=== PATIENT | female | born 1955 | race Hispanic/Latino ===

== ENCOUNTER 2017-07-14 10:53 | Outpatient (CLI) | payer MEDICARE ==
[2017-07-14 12:05] LABS: Blood Urea Nitrogen 16 mg/dL (7-17)
[2017-07-14] MEDS ORDERED: NACL ONE (13:04)
--- NOTE | 2017-07-14 14:47 | Cat Scan Report ---
CT ABDOMEN AND PELVIS WITHOUT AND WITH CONTRAST INDICATION: Abdomen and pelvic swelling, mass, lump. COMPARISON: None similar. FINDINGS: Abdomen and pelvis CT performed following oral contrast and intravenous administration of 100 cc of Omnipaque 300. Precontrast images also obtained. LUNG BASES: Mild bibasilar atelectasis or scarring. Slight coronary calcifications. Nonspecific distal esophageal wall prominence/thickening, not excluded for gastroesophageal reflux and/or hiatal hernia, amongst others. ABDOMEN: Precontrast images demonstrate no radiopaque gallstones or renal calculi. Postcontrast images demonstrate left hepatic lobe tip extending into the left upper quadrant. Right hepatic lobe approximately 19.3 cm in midclavicular length. Approximately 1.2 cm nonspecific splenic hypodensity, axial image 34, series 4, possibly a hemangioma. Otherwise unremarkable liver, spleen, gallbladder, pancreas, adrenals, nonaneurysmal abdominal aorta with mild atherosclerotic calcifications, IVC and non-hydronephrotic kidneys. No ascites or size significant adenopathy. Opacified GI tract nonobstructive. Somewhat low-lying cecum in the right hemipelvis. Moderate colonic stool/constipation admixed with contrast. Small fat-containing umbilical hernia with a transverse neck of 0.9 cm. PELVIS: Uterus surgically absent. Few small pelvic phleboliths. Urinary bladder and the rectosigmoid within normal limits. No free fluid or significant adenopathy. Approximately 1.3 cm L3 vertebral body hemangioma on the right. No focal aggressive osseous lesions. CONCLUSION: Various incidental findings, including possible constipation, somewhat prominent liver and hysterectomy, amongst others, as above. Please correlate. Thank you for the opportunity to participate in this patient's care.
== END 2017-07-14 10:54 | disposition home or self-care (01) ==
LOC: CT 10:53
PROVIDERS: ATTEND Internal Medicine
DX: K42.9 Umbilical hernia without obstruction or gangrene (principal); I25.10 Atherosclerotic heart disease of native coronary artery without angina pectoris; I70.0 Atherosclerosis of aorta; I87.8 Other specified disorders of veins; D18.09 Hemangioma of other sites; J44.9 Chronic obstructive pulmonary disease, unspecified; D64.9 Anemia, unspecified; J18.9 Pneumonia, unspecified organism; F17.200 Nicotine dependence, unspecified, uncomplicated; Z90.710 Acquired absence of both cervix and uterus
CPT/HCPCS: 36415; 74178; 82565; 84520; Q9967

== ENCOUNTER 2017-10-18 17:04 | Emergency (ER) | payer MEDICARE ==
[2017-10-18 17:13] VITALS: BP 169/83
== END 2017-10-18 22:00 | disposition left against medical advice (07) ==
LOC: ED 17:04
DX: R03.0 Elevated blood-pressure reading, without diagnosis of hypertension (principal); Z53.21 Procedure and treatment not carried out due to patient leaving prior to being seen by health care provider

== ENCOUNTER 2018-01-26 15:52 | Emergency (ER) | payer MEDICARE ==
[2018-01-26] MEDS ORDERED: ULTRAM PO ONE (18:09)
[2018-01-26] MEDS ORDERED: MOTRIN PO ONE (18:09)
--- NOTE | 2018-01-26 19:30 | XRay Report ---
FINAL REPORT PROCEDURE: XR PELVIS COMPLETE 3+V TECHNIQUE: Pelvis radiographs, 3 views, AP and right oblique projections. CPT 99174 HISTORY: Foreign body right buttock. COMPARISON: No prior studies are available for comparison. FINDINGS: Fracture(s): None . Joint spaces: Mild narrowing of the bilateral hip joints. Mild narrowing of the symphysis. Soft tissues: Small pelvic phleboliths. Foreign bodies: Linear 5 mm density overlies the right iliac wing, not clearly seen on lateral view and not seen in the subcutaneous soft tissues on oblique view. Bone mineralization: Normal . IMPRESSION: Linear 5 mm density overlies the right iliac wing. This is not clearly seen on lateral view or in the subcutaneous tissues on oblique view. Consider could be debris in bowel. Cannot exclude small linear radiopaque foreign body. Consider further evaluation/clinical correlation if there is continued clinical concern for small radiopaque foreign body. Mild degenerative change.
--- NOTE | 2018-01-26 19:52 | Emergency Department Report ---
ED General Adult HPI - General Chief complaint: Skin/Abscess/Foreign Body Stated complaint: NEEDLE IN RIGHT HIP Time Seen by Provider: 01/26/18 16:39 Source: patient Mode of arrival: Ambulatory Limitations: No Limitations - History of Present Illness Initial comments: Patient is a 62-year-old female who is presenting with a possible foreign body in the right buttock. Patient states her gives her B12 shots. Patient states that she feels of a piece of the needle broke off in the skin. Patient had a shot placed in the right buttock. Patient having this minor discomfort in that area approximately a 3 out of 10 in severity patient denies any fevers chills nausea vomiting diarrhea at this time. Severity scale (0 -10): 5 - Related Data Home Medications Medication Instructions Recorded Confirmed Last Taken busPIRone [Buspar] 5 mg PO TID 12/30/14 05/04/17 Unknown Cyclobenzaprine [Flexeril 10 MG 25 mg PO TID PRN 02/26/16 05/04/17 Unknown TAB] Phenytoin [Dilantin] 300 mg PO QHS 05/05/17 05/05/17 05/03/17 Previous Rx's Medication Instructions Recorded Last Taken Type Promethazine [Phenergan TAB] 25 mg PO Q6H PRN #20 tablet 05/13/15 Unknown Rx ALPRAZolam [Xanax TAB] 1 mg PO Q8H PRN #90 tablet 10/07/15 Unknown Rx Citalopram Hydrobromide [celeXA] 40 mg PO QDAY #30 tablet 10/07/15 Unknown Rx Dicyclomine [Bentyl] 10 mg PO TID #90 capsule 10/07/15 Unknown Rx HYDROcodone/APAP 10-325 [[place] 1 tab PO Q6H PRN #90 tablet 10/07/15 Unknown Rx 10-325 mg TAB] OLANzapine [ZyPREXA] 15 mg PO QHS #30 tablet 10/07/15 Unknown Rx Omeprazole [PriLOSEC] 20 mg PO QDAY #30 capsule. 10/07/15 Unknown Rx Benzonatate [Tessalon Perles] 100 mg PO Q8HR #10 capsule 05/06/17 Unknown Rx Famotidine [Pepcid] 20 mg PO BID #30 tablet 05/06/17 Unknown Rx Levofloxacin [Levaquin TAB] 750 mg PO Q24HR #4 tablet 05/06/17 Unknown Rx Doxycycline [Vibramycin CAP] 100 mg PO Q12HR #14 capsule 01/26/18 Unknown Rx Ibuprofen [Motrin] 800 mg PO Q8HR PRN #20 tablet 01/26/18 Unknown Rx traMADol [Ultram] 50 mg PO Q6HR PRN #12 tablet 01/26/18 Unknown Rx Allergies Allergy/AdvReac Type Severity Reaction Status Date / Time No Known Allergies Allergy Verified 01/26/18 16:09 ED Review of Systems ROS: Stated complaint: NEEDLE IN RIGHT HIP Other details as noted in HPI Comment: All other systems reviewed and negative ED Past Medical Hx - Past Medical History Hx Hypertension: No Hx Heart Attack/AMI: No Hx Congestive Heart Failure: No Hx Diabetes: No Hx Deep Vein Thrombosis: No Hx Pulmonary Embolism: No Hx GERD: No Hx Liver Disease: No Hx Renal Disease: No Hx Sickle Cell Disease: No Hx Arthritis: No Hx Headaches / Migraines: Yes Hx Seizures: Yes Hx Kidney Stones: No Hx Asthma: No Hx COPD: Yes Hx Tuberculosis: No Hx Dementia: No Hx HIV: No Additional medical history: MVP - Surgical History Hx Coronary Stent: No Hx Open Heart Surgery: No Hx Pacemaker: No Hx Internal Defibrillator: No Hx Cholecystectomy: No Hx Appendectomy: No Hx Breast Surgery: No Additional Surgical History: Hysterectomy(1985), ganglion cyst removed Left wrist - Social History Smoking Status: Current Every Day Smoker Substance Use Type: None - Medications Home Medications: Home Medications Medication Instructions Recorded Confirmed Last Taken Type busPIRone [Buspar] 5 mg PO TID 12/30/14 05/04/17 Unknown History Promethazine [Phenergan TAB] 25 mg PO Q6H PRN #20 tablet 05/13/15 05/04/17 Unknown Rx ALPRAZolam [Xanax TAB] 1 mg PO Q8H PRN #90 tablet 10/07/15 05/04/17 Unknown Rx Citalopram Hydrobromide [celeXA] 40 mg PO QDAY #30 tablet 10/07/15 05/04/17 Unknown Rx Dicyclomine [Bentyl] 10 mg PO TID #90 capsule 10/07/15 05/04/17 Unknown Rx HYDROcodone/APAP 10-325 [[place] 1 tab PO Q6H PRN #90 tablet 10/07/15 05/04/17 Unknown Rx 10-325 mg TAB] OLANzapine [ZyPREXA] 15 mg PO QHS #30 tablet 10/07/15 05/04/17 Unknown Rx Omeprazole [PriLOSEC] 20 mg PO QDAY #30 capsule. 10/07/15 05/04/17 Unknown Rx Cyclobenzaprine [Flexeril 10 MG 25 mg PO TID PRN 02/26/16 05/04/17 Unknown History TAB] Phenytoin [Dilantin] 300 mg PO QHS 05/05/17 05/05/17 05/03/17 History Benzonatate [Tessalon Perles] 100 mg PO Q8HR #10 capsule 05/06/17 Unknown Rx Famotidine [Pepcid] 20 mg PO BID #30 tablet 05/06/17 Unknown Rx Levofloxacin [Levaquin TAB] 750 mg PO Q24HR #4 tablet 05/06/17 Unknown Rx Doxycycline [Vibramycin CAP] 100 mg PO Q12HR #14 capsule 01/26/18 Unknown Rx Ibuprofen [Motrin] 800 mg PO Q8HR PRN #20 tablet 01/26/18 Unknown Rx traMADol [Ultram] 50 mg PO Q6HR PRN #12 tablet 01/26/18 Unknown Rx ED Physical Exam - General Limitations: No Limitations General appearance: alert, in no apparent distress - Head Head exam: Present: atraumatic, normocephalic - Eye Eye exam: Present: normal appearance - ENT ENT exam: Present: mucous membranes moist - Neck Neck exam: Present: normal inspection - Respiratory Respiratory exam: Present: normal lung sounds bilaterally. Absent: respiratory distress - Cardiovascular Cardiovascular Exam: Present: regular rate, normal rhythm. Absent: systolic murmur, diastolic murmur, rubs, gallop - GI/Abdominal GI/Abdominal exam: Present: soft, normal bowel sounds - Extremities Exam Extremities exam: Present: normal inspection - Back Exam Back exam: Present: normal inspection - Neurological Exam Neurological exam: Present: alert, oriented X3 - Psychiatric Psychiatric exam: Present: normal affect, normal mood - Skin Skin exam: Present: warm, dry, intact, normal color. Absent: rash ED Course Vital Signs 01/26/18 01/26/18 15:54 15:58 Temperature 97.9 F Pulse Rate 93 H Respiratory 15 Rate Blood Pressure 129/66 O2 Sat by Pulse 97 Oximetry ED Medical Decision Making - Radiology Data Radiology results: report reviewed Is a small 5 mm radiopaque foreign body in the right iliac wing area on the AP view. This is not seen on the other views. This consistent with a small foreign body - Medical Decision Making Patient does have a small foreign body in the right buttock. This is too small to be removed from the emergency Department not able to feel anything when pressing in this area. Patient will be started on antibiotics and pain meds be referred to interventional radiology to return if redness worsens or other signs of symptoms of infection. Critical care attestation.: If time is entered above; I have spent that time in minutes in the direct care of this critically ill patient, excluding procedure time. ED Disposition Clinical Impression: Foreign body in skin Disposition: DC-01 TO HOME OR SELFCARE Is pt being admited?: No Does the pt Need Aspirin: No Condition: Stable Instructions: Soft Tissue Foreign Body (ED) Prescriptions: Doxycycline [Vibramycin CAP] 100 mg PO Q12HR #14 capsule Ibuprofen [Motrin] 800 mg PO Q8HR PRN #20 tablet PRN Reason: Pain traMADol [Ultram] 50 mg PO Q6HR PRN #12 tablet PRN Reason: Pain Referrals: TAHIR SCHULTE MD [Staff Physician] - 3-5 Days EDIN AUGUSTINE MD [Primary Care Provider] - 3-5 Days
[2018-01-26 21:22] VITALS: BP 130/65
== END 2018-01-26 20:00 | disposition home or self-care (01) ==
LOC: ED 15:52
DX: S30.850A Superficial foreign body of lower back and pelvis, initial encounter (principal); G43.909 Migraine, unspecified, not intractable, without status migrainosus; J44.9 Chronic obstructive pulmonary disease, unspecified; F17.200 Nicotine dependence, unspecified, uncomplicated; Z90.710 Acquired absence of both cervix and uterus; W45.8XXA Other foreign body or object entering through skin, initial encounter; Y93.89 Activity, other specified; Y99.9 Unspecified external cause status; Y92.89 Other specified places as the place of occurrence of the external cause
CPT/HCPCS: 72190; 99282

== ENCOUNTER 2020-07-24 04:59 | Emergency (ER) | payer MEDICAID, MEDICARE ==
[2020-07-24 05:21] VITALS: BP 117/63
[2020-07-24 07:51] LABS: Bilirubin,Urine NEG (Negative); Blood,Urine SM (Negative); Color,Urine Yellow (Yellow); Protein,Urine <15 mg/dL mg/dL (Negative); Urobilinogen,Urine < 2.0 mg/dL (<2.0)
--- NOTE | 2020-07-24 08:27 | Emergency Department Report ---
ED Female HPI - General Chief complaint: Urogenital-Female Stated complaint: DISCOLORED ON PAD Time Seen by Provider: 07/24/20 08:24 Source: patient Mode of arrival: Ambulatory Limitations: No Limitations - History of Present Illness Initial comments: 65-year-old female presents to the emergency room for vaginal discharge x5 months. Patient states she has been having abdominal pain for the last few days. She denies any fever chills no nausea no vomiting. She reports she had a hysterectomy in 1985. Patient is a smoker with a history of COPD seizure disorder, migraine headaches, mitral valve prolapse. Complaint: vaginal discharge - Related Data Home Medications Medication Instructions Recorded Confirmed Last Taken busPIRone [Buspar] 5 mg PO TID 12/30/14 05/04/17 Unknown Cyclobenzaprine [Flexeril 10 MG 25 mg PO TID PRN 02/26/16 05/04/17 Unknown TAB] Phenytoin [Dilantin] 300 mg PO QHS 05/05/17 05/05/17 05/03/17 Previous Rx's Medication Instructions Recorded Last Taken Type Promethazine [Phenergan] 25 mg PO Q6H PRN #20 tablet 05/13/15 Unknown Rx ALPRAZolam [Xanax TAB] 1 mg PO Q8H PRN #90 tablet 10/07/15 Unknown Rx Citalopram Hydrobromide [celeXA] 40 mg PO QDAY #30 tablet 10/07/15 Unknown Rx Dicyclomine [Bentyl] 10 mg PO TID #90 capsule 10/07/15 Unknown Rx HYDROcodone/APAP 10-325 [[place] 1 tab PO Q6H PRN #90 tablet 10/07/15 Unknown Rx 10-325 mg TAB] OLANzapine [ZyPREXA] 15 mg PO QHS #30 tablet 10/07/15 Unknown Rx Omeprazole [PriLOSEC] 20 mg PO QDAY #30 capsule. 10/07/15 Unknown Rx Benzonatate [Tessalon Perles] 100 mg PO Q8HR #10 capsule 05/06/17 Unknown Rx Famotidine [Pepcid] 20 mg PO BID #30 tablet 05/06/17 Unknown Rx levoFLOXacin [Levaquin TAB] 750 mg PO Q24HR #4 tablet 05/06/17 Unknown Rx DOXYCYCLINE Hyclate [Vibramycin 100 mg PO Q12HR #14 capsule 01/26/18 Unknown Rx CAP] Ibuprofen [Motrin] 800 mg PO Q8HR PRN #20 tablet 01/26/18 Unknown Rx traMADoL [Ultram] 50 mg PO Q6HR PRN #12 tablet 01/26/18 Unknown Rx Allergies Allergy/AdvReac Type Severity Reaction Status Date / Time No Known Allergies Allergy Verified 01/26/18 16:09 ED Review of Systems ROS: Stated complaint: DISCOLORED ON PAD Other details as noted in HPI ED Past Medical Hx - Past Medical History Previous Medical History?: Yes Hx Hypertension: No Hx Heart Attack/AMI: No Hx Congestive Heart Failure: No Hx Diabetes: No Hx Deep Vein Thrombosis: No Hx Pulmonary Embolism: No Hx GERD: No Hx Liver Disease: No Hx Renal Disease: No Hx Sickle Cell Disease: No Hx Arthritis: No Hx Headaches / Migraines: Yes Hx Seizures: Yes Hx Kidney Stones: No Hx Asthma: No Hx COPD: Yes Hx Tuberculosis: No Hx Dementia: No Hx HIV: No Additional medical history: MVP - Surgical History Past Surgical History?: Yes Hx Coronary Stent: No Hx Open Heart Surgery: No Hx Pacemaker: No Hx Internal Defibrillator: No Hx Cholecystectomy: No Hx Appendectomy: No Hx Breast Surgery: No Additional Surgical History: Hysterectomy(1985), ganglion cyst removed Left wrist - Social History Smoking Status: Current Every Day Smoker Substance Use Type: None - Medications Home Medications: Home Medications Medication Instructions Recorded Confirmed Last Taken Type busPIRone [Buspar] 5 mg PO TID 12/30/14 05/04/17 Unknown History Promethazine [Phenergan] 25 mg PO Q6H PRN #20 tablet 05/13/15 05/04/17 Unknown Rx ALPRAZolam [Xanax TAB] 1 mg PO Q8H PRN #90 tablet 10/07/15 05/04/17 Unknown Rx Citalopram Hydrobromide [celeXA] 40 mg PO QDAY #30 tablet 10/07/15 05/04/17 Unknown Rx Dicyclomine [Bentyl] 10 mg PO TID #90 capsule 10/07/15 05/04/17 Unknown Rx HYDROcodone/APAP 10-325 [[place] 1 tab PO Q6H PRN #90 tablet 10/07/15 05/04/17 Unknown Rx 10-325 mg TAB] OLANzapine [ZyPREXA] 15 mg PO QHS #30 tablet 10/07/15 05/04/17 Unknown Rx Omeprazole [PriLOSEC] 20 mg PO QDAY #30 capsule. 10/07/15 05/04/17 Unknown Rx Cyclobenzaprine [Flexeril 10 MG 25 mg PO TID PRN 02/26/16 05/04/17 Unknown History TAB] Phenytoin [Dilantin] 300 mg PO QHS 05/05/17 05/05/17 05/03/17 History Benzonatate [Tessalon Perles] 100 mg PO Q8HR #10 capsule 05/06/17 Unknown Rx Famotidine [Pepcid] 20 mg PO BID #30 tablet 05/06/17 Unknown Rx levoFLOXacin [Levaquin TAB] 750 mg PO Q24HR #4 tablet 05/06/17 Unknown Rx DOXYCYCLINE Hyclate [Vibramycin 100 mg PO Q12HR #14 capsule 01/26/18 Unknown Rx CAP] Ibuprofen [Motrin] 800 mg PO Q8HR PRN #20 tablet 01/26/18 Unknown Rx traMADoL [Ultram] 50 mg PO Q6HR PRN #12 tablet 01/26/18 Unknown Rx ED Physical Exam - General Limitations: No Limitations General appearance: alert, in no apparent distress - Head Head exam: Present: atraumatic, normocephalic - Eye Eye exam: Present: normal appearance - ENT ENT exam: Present: mucous membranes moist - Neck Neck exam: Present: normal inspection - Respiratory Respiratory exam: Present: normal lung sounds bilaterally. Absent: respiratory distress - GI/Abdominal GI/Abdominal exam: Present: soft, normal bowel sounds - External exam: Present: normal external exam. Absent: swelling, lesions, bleeding Speculum exam: Present: other (no cervix). Absent: erythema, vaginal discharge, cervical discharge, vaginal bleeding - Extremities Exam Extremities exam: Present: normal inspection, full ROM - Back Exam Back exam: Present: normal inspection - Neurological Exam Neurological exam: Present: alert, oriented X3, normal gait - Psychiatric Psychiatric exam: Present: normal affect, normal mood - Skin Skin exam: Present: warm, dry, intact, normal color. Absent: rash ED Course Vital Signs 07/24/20 05:13 Temperature 97.8 F Pulse Rate 77 Respiratory 16 Rate Blood Pressure 117/63 O2 Sat by Pulse 97 Oximetry ED Medical Decision Making - Radiology Data Radiology results: report reviewed Ordering Physician: AKILA MURPHY Date of Service: 07/24/20 Procedure(s): US pelvic complete Accession Number(s): [id number] cc: AKILA MURPHY Pelvic Ultrasound HISTORY: Suprapubic pelvic pain status post hysterectomy. TECHNIQUE: Grayscale and color imaging performed. COMPARISON: CT abdomen/pelvis from 07/14/2017 FINDINGS: Uterus is partially surgically absent. The residual uterus measures 9.4 x 4.1 x 9.8 cm with endometrial echocomplex measuring 4 mm. Ovaries are not visualized on this exam. No mass or collection in the pelvis. The bladder is unremarkable. IMPRESSION: No acute abnormality identified although it should be noted the ovaries are not visualized on this exam. The ovaries may be surgically absent--correlate with history. Signer Name: Edgardo Carrillo MD Signed: 07/24/2020 10:50 AM Workstation Name: [id number] Transcribed By: SONNY Dictated By: Edgardo Carrillo MD Electronically Authenticated By: Edgardo Carrillo MD Signed Date/Time: 07/24/20 1050 DD/ 1048 TD/TT: Critical care attestation.: If time is entered above; I have spent that time in minutes in the direct care of this critically ill patient, excluding procedure time. ED Disposition Clinical Impression: Vaginal discharge, Pelvic pain in female Disposition: DC-01 TO HOME OR SELFCARE Is pt being admited?: No Does the pt Need Aspirin: No Condition: Stable Additional Instructions: Urinalysis is negative for any acute infection, vaginal swabs are negative for any acute infection. Ultrasound is negative for any acute abnormality does show that there is no ovaries that were able to be identified. I recommend following up with an [facility] I have listed several below for your convenience. You can take Tylenol or ibuprofen as needed for pain management. Referrals: PRIMARY CARE, [Primary Care Provider] - 3-5 Days [facility] [Provider Group] - 3-5 Days [facility] [Provider Group] - 3-5 Days [facility] [Provider Group] - 3-5 Days Forms: Work/School Release Form(ED)
--- NOTE | 2020-07-24 10:54 | Ultrasound Report ---
Pelvic Ultrasound HISTORY: Suprapubic pelvic pain status post hysterectomy. TECHNIQUE: Grayscale and color imaging performed. COMPARISON: CT abdomen/pelvis from 07/14/2017 FINDINGS: Uterus is partially surgically absent. The residual uterus measures 9.4 x 4.1 x 9.8 cm with endometrial echocomplex measuring 4 mm. Ovaries are not visualized on this exam. No mass or collecti on in the pelvis. The bladder is unremarkable. IMPRESSION: No acute abnormality identified although it should be noted the ovaries are not visualize d on this exam. The ovaries may be surgically absent--correlate with history. Signer Name: Edgardo Carrillo MD Signed: 07/24/2020 10:50 AM Workstation Name: [id number]
== END 2020-07-24 11:33 | disposition home or self-care (01) ==
LOC: ED 04:59
DX: N89.8 Other specified noninflammatory disorders of vagina (principal); R10.2 Pelvic and perineal pain; G43.909 Migraine, unspecified, not intractable, without status migrainosus; R56.9 Unspecified convulsions; J44.9 Chronic obstructive pulmonary disease, unspecified; F17.200 Nicotine dependence, unspecified, uncomplicated; Z90.710 Acquired absence of both cervix and uterus; Z98.890 Other specified postprocedural states; Z79.1 Long term (current) use of non-steroidal anti-inflammatories (NSAID); Z79.899 Other long term (current) drug therapy
CPT/HCPCS: 76856; 81001; 87210; 87591

== ENCOUNTER 2021-02-25 04:06 | Emergency (ER) | payer MEDICARE ==
[2021-02-25 06:08] LABS: Basophils % (Auto) 0.3 % (0.0-1.8); Eosinophils % (Auto) 0.1 % (0.0-4.3); Hematocrit 40.2 % (30.3-42.9); Hemoglobin 13.9 gm/dl (10.1-14.3); Lymphocytes # (Auto) 2.7 K/mm3 (1.2-5.4); Lymphocytes % (Auto) 20.1 % (13.4-35.0); Mean Corpuscular HGB Conc 35 % (30-34); Mean Corpuscular Volume 93 fl (79-97); Monocytes # (Auto) 0.8 K/mm3 (0.0-0.8); Monocytes % (Auto) 5.9 % (0.0-7.3); Platelet Count 305 K/mm3 (140-440); Red Blood Count 4.34 M/mm3 (3.65-5.03); Red Cell Distribution Width 12.7 % (13.2-15.2)
[2021-02-25 06:12] LABS: BUN/Creatinine Ratio 29; Blood Urea Nitrogen 26 mg/dL (7-17); Calcium 9.5 mg/dL (8.4-10.2); Hemolysis Index 9
[2021-02-25] MEDS ORDERED: SODIUM CHLORIDE 0.9% 1000 ML 1,000 ML IV ONE (09:06)
[2021-02-25] MEDS ORDERED: DICYCLOMINE 20 MG/2 ML INJ IM ONE (09:06)
[2021-02-25] MEDS ORDERED: KETOROLAC 30 MG/1 ML INJ IV ONE (09:06)
--- NOTE | 2021-02-25 10:31 | Cat Scan Report ---
CT abdomen pelvis w con INDICATION / CLINICAL INFORMATION: Abdominal pain with lower GI bleeding TECHNIQUE: Routine CT abdomen pelvis with contrast All CT scans at this location are performed using CT dose red uction for ALARA by means of automated exposure control. COMPARISON: 07/14/2017 FINDINGS: Abdomen and pelvis: The lower lungs are clear. The liver remains enlarged, similar to the prior exam. The gallbladder, spleen, pancreas adrenal glands and kidneys are unremarkable aside from a small low -density lesion within the spleen is unchanged in size or character from the prior exam.. There is a small type I hiatal hernia. Scattered atherosclerotic calcification of a nondilated abdominal aorta. There is borderline to mild mucosal thickening involving much of the distal transverse and descending colon. Much of the sigmoid colon is collapsed and difficult to evaluate. No free air or free fluid. No bowel obstruction. Urinar y bladder is unremarkable. Review of bone windows demonstrates thoracolumbar degenerative changes. IMPRESSION: 1. Suspect mild colitis especially the distal colon. 2. Hepatomegaly, unchanged. 3. Few sigmoid diverticula but no evidence of diverticulitis. Signer Name: Jose Alfredo Good MD Signed: 02/25/2021 10:27 AM Workstation Name: [id number]
--- NOTE | 2021-02-25 10:59 | Emergency Department Report ---
ED GI Bleed HPI - General Chief complaint: GI Bleed Stated complaint: BLOODY STOOL/ABD PAIN Time Seen by Provider: 02/25/21 09:01 Source: patient Mode of arrival: Ambulatory Limitations: No Limitations - History of Present Illness Initial comments: patient is a 65-year-old female who is presenting with some bleeding from her rectum since yesterday. She has had approximately 3-4 episodes but states her last episode was normal. She denies any dysuria nausea vomiting fevers or chills. States she had something similar approximately 10 years ago. Patient did see GI at that time and had a scope which showed several polyps but no other abnormality. Patient is having some diffuse mostly lower abdominal crampiness which is estimated 4 out of 10 in severity. Patient denies any fevers cough cold congestion or body aches. Severity scale (0 -10): 8 - Related Data Home Medications Medication Instructions Recorded Confirmed Last Taken busPIRone [Buspar] 5 mg PO TID 12/30/14 05/04/17 Unknown Cyclobenzaprine [Flexeril 10 MG 25 mg PO TID PRN 02/26/16 05/04/17 Unknown TAB] Phenytoin [Dilantin] 300 mg PO QHS 05/05/17 05/05/17 05/03/17 Previous Rx's Medication Instructions Recorded Last Taken Type Promethazine [Phenergan] 25 mg PO Q6H PRN #20 tablet 05/13/15 Unknown Rx ALPRAZolam [Xanax TAB] 1 mg PO Q8H PRN #90 tablet 10/07/15 Unknown Rx Citalopram Hydrobromide [celeXA] 40 mg PO QDAY #30 tablet 10/07/15 Unknown Rx Dicyclomine [Bentyl] 10 mg PO TID #90 capsule 10/07/15 Unknown Rx HYDROcodone/APAP 10-325 [Pelion 1 tab PO Q6H PRN #90 tablet 10/07/15 Unknown Rx 10-325 mg TAB] OLANzapine [ZyPREXA] 15 mg PO QHS #30 tablet 10/07/15 Unknown Rx Omeprazole [PriLOSEC] 20 mg PO QDAY #30 capsule. 10/07/15 Unknown Rx Benzonatate [Tessalon Perles] 100 mg PO Q8HR #10 capsule 05/06/17 Unknown Rx Famotidine [Pepcid] 20 mg PO BID #30 tablet 05/06/17 Unknown Rx levoFLOXacin [Levaquin TAB] 750 mg PO Q24HR #4 tablet 05/06/17 Unknown Rx DOXYCYCLINE Hyclate [Vibramycin 100 mg PO Q12HR #14 capsule 01/26/18 Unknown Rx CAP] Ibuprofen [Motrin] 800 mg PO Q8HR PRN #20 tablet 01/26/18 Unknown Rx traMADoL [Ultram] 50 mg PO Q6HR PRN #12 tablet 01/26/18 Unknown Rx Ciprofloxacin HCl 500 mg PO BID #20 tablet 02/25/21 Unknown Rx Dicyclomine [Bentyl] 20 mg PO QID #10 tablet 02/25/21 Unknown Rx Ondansetron [Zofran Odt] 4 mg PO Q8HR #10 tab.rapdis 02/25/21 Unknown Rx metroNIDAZOLE [Flagyl] 500 mg PO Q12HR #20 tab 02/25/21 Unknown Rx traMADoL [Ultram] 50 mg PO Q6HR PRN #12 tablet 02/25/21 Unknown Rx Allergies Allergy/AdvReac Type Severity Reaction Status Date / Time No Known Allergies Allergy Verified 01/26/18 16:09 ED Review of Systems ROS: Stated complaint: BLOODY STOOL/ABD PAIN Other details as noted in HPI Comment: All other systems reviewed and negative ED Past Medical Hx - Past Medical History Previous Medical History?: Yes Hx Hypertension: Yes Hx Heart Attack/AMI: No Hx Congestive Heart Failure: No Hx Diabetes: No Hx Deep Vein Thrombosis: No Hx Pulmonary Embolism: No Hx GERD: No Hx Liver Disease: No Hx Renal Disease: No Hx Sickle Cell Disease: No Hx Arthritis: No Hx Headaches / Migraines: Yes Hx Seizures: Yes Hx Kidney Stones: No Hx Asthma: No Hx COPD: Yes Hx Tuberculosis: No Hx Dementia: No Hx HIV: No Additional medical history: MVP - Surgical History Past Surgical History?: Yes Hx Coronary Stent: No Hx Open Heart Surgery: No Hx Pacemaker: No Hx Internal Defibrillator: No Hx Cholecystectomy: No Hx Appendectomy: No Hx Breast Surgery: No Additional Surgical History: Hysterectomy(1985), ganglion cyst removed Left wrist - Social History Smoking Status: Current Every Day Smoker Substance Use Type: Marijuana - Medications Home Medications: Home Medications Medication Instructions Recorded Confirmed Last Taken Type busPIRone [Buspar] 5 mg PO TID 12/30/14 05/04/17 Unknown History Promethazine [Phenergan] 25 mg PO Q6H PRN #20 tablet 05/13/15 05/04/17 Unknown Rx ALPRAZolam [Xanax TAB] 1 mg PO Q8H PRN #90 tablet 10/07/15 05/04/17 Unknown Rx Citalopram Hydrobromide [celeXA] 40 mg PO QDAY #30 tablet 10/07/15 05/04/17 Unknown Rx Dicyclomine [Bentyl] 10 mg PO TID #90 capsule 10/07/15 05/04/17 Unknown Rx HYDROcodone/APAP 10-325 [Pelion 1 tab PO Q6H PRN #90 tablet 10/07/15 05/04/17 Unknown Rx 10-325 mg TAB] OLANzapine [ZyPREXA] 15 mg PO QHS #30 tablet 10/07/15 05/04/17 Unknown Rx Omeprazole [PriLOSEC] 20 mg PO QDAY #30 capsule. 10/07/15 05/04/17 Unknown Rx Cyclobenzaprine [Flexeril 10 MG 25 mg PO TID PRN 02/26/16 05/04/17 Unknown History TAB] Phenytoin [Dilantin] 300 mg PO QHS 05/05/17 05/05/17 05/03/17 History Benzonatate [Tessalon Perles] 100 mg PO Q8HR #10 capsule 05/06/17 Unknown Rx Famotidine [Pepcid] 20 mg PO BID #30 tablet 05/06/17 Unknown Rx levoFLOXacin [Levaquin TAB] 750 mg PO Q24HR #4 tablet 05/06/17 Unknown Rx DOXYCYCLINE Hyclate [Vibramycin 100 mg PO Q12HR #14 capsule 01/26/18 Unknown Rx CAP] Ibuprofen [Motrin] 800 mg PO Q8HR PRN #20 tablet 01/26/18 Unknown Rx traMADoL [Ultram] 50 mg PO Q6HR PRN #12 tablet 01/26/18 Unknown Rx Ciprofloxacin HCl 500 mg PO BID #20 tablet 02/25/21 Unknown Rx Dicyclomine [Bentyl] 20 mg PO QID #10 tablet 02/25/21 Unknown Rx Ondansetron [Zofran Odt] 4 mg PO Q8HR #10 tab.rapdis 02/25/21 Unknown Rx metroNIDAZOLE [Flagyl] 500 mg PO Q12HR #20 tab 02/25/21 Unknown Rx traMADoL [Ultram] 50 mg PO Q6HR PRN #12 tablet 02/25/21 Unknown Rx ED Physical Exam - General Limitations: No Limitations General appearance: alert, in no apparent distress - Head Head exam: Present: atraumatic, normocephalic - Eye Eye exam: Present: normal appearance - ENT ENT exam: Present: mucous membranes moist - Neck Neck exam: Present: normal inspection - Respiratory Respiratory exam: Present: normal lung sounds bilaterally. Absent: respiratory distress, wheezes, rales - Cardiovascular Cardiovascular Exam: Present: regular rate, normal rhythm, normal heart sounds. Absent: systolic murmur, diastolic murmur, rubs, gallop - GI/Abdominal GI/Abdominal exam: Present: soft, tenderness, normal bowel sounds. Absent: distended, guarding, rebound - Extremities Exam Extremities exam: Present: normal inspection - Back Exam Back exam: Present: normal inspection - Neurological Exam Neurological exam: Present: alert, oriented X3 - Psychiatric Psychiatric exam: Present: normal affect, normal mood - Skin Skin exam: Present: warm, dry, intact, normal color. Absent: rash ED Course Vital Signs 02/25/21 02/25/21 02/25/21 04:11 09:18 09:32 Temperature 97.9 F Pulse Rate 105 H 78 Respiratory 12 18 Rate Blood Pressure 126/73 Blood Pressure 110/58 [Left] O2 Sat by Pulse 94 99 97 Oximetry ED Medical Decision Making - Lab Data Result diagrams: 02/25/21 05:30 02/25/21 05:30 Lab Results 02/25/21 02/25/21 Range/Units 05:30 05:30 WBC 13.5 H (4.5-11.0) K/mm3 RBC 4.34 (3.65-5.03) M/mm3 Hgb 13.9 (10.1-14.3) gm/dl Hct 40.2 (30.3-42.9) % MCV 93 (79-97) fl MCH 32 (28-32) pg MCHC 35 H (30-34) % RDW 12.7 L (13.2-15.2) % Plt Count 305 (140-440) K/mm3 Lymph % (Auto) 20.1 (13.4-35.0) % Webb % (Auto) 5.9 (0.0-7.3) % Eos % (Auto) 0.1 (0.0-4.3) % Baso % (Auto) 0.3 (0.0-1.8) % Lymph # (Auto) 2.7 (1.2-5.4) K/mm3 Webb # (Auto) 0.8 (0.0-0.8) K/mm3 Eos # (Auto) 0.0 (0.0-0.4) K/mm3 Baso # (Auto) 0.0 (0.0-0.1) K/mm3 Seg Neutrophils % 73.6 H (40.0-70.0) % Seg Neutrophils # 9.9 H (1.8-7.7) K/mm3 Sodium 137 (137-145) mmol/L Potassium 4.0 (3.6-5.0) mmol/L Chloride 103.3 (98-107) mmol/L Carbon Dioxide 18 L (22-30) mmol/L Anion Gap 20 mmol/L BUN 26 H (7-17) mg/dL Creatinine 0.9 (0.6-1.2) mg/dL Estimated GFR > 60 ml/min BUN/Creatinine Ratio 29 % Glucose 109 H (65-100) mg/dL Calcium 9.5 (8.4-10.2) mg/dL - Radiology Data [facility] [address] [place] [address] Cat Scan Report Signed Patient: DUANE FIGUEREDO MR#: [id number] : 1955 Acct:[id number] Age/Sex: 65 / F ADM Date: 02/25/21 Loc: ED Attending Dr: Ordering Physician: REESE CRAIG MD Date of Service: 02/25/21 Procedure(s): CT abdomen pelvis w con Accession Number(s): [id number] cc: REESE CRAIG MD CT abdomen pelvis w con INDICATION / CLINICAL INFORMATION: Abdominal pain with lower GI bleeding TECHNIQUE: Routine CT abdomen pelvis with contrast All CT scans at this location are performed using CT dose reduction for ALARA by means of automated exposure control. COMPARISON: 07/14/2017 FINDINGS: Abdomen and pelvis: The lower lungs are clear. The liver remains enlarged, similar to the prior exam. The gallbladder, spleen, pancreas adrenal glands and kidneys are unremarkable aside from a small low-density lesion within the spleen is unchanged in size or character from the prior exam.. There is a small type I hiatal hernia. Scattered atherosclerotic calcification of a nondilated abdominal aorta. There is borderline to mild mucosal thickening involving much of the distal transverse and descending colon. Much of the sigmoid colon is collapsed and difficult to evaluate. No free air or free fluid. No bowel obstruction. Urinary bladder is unremarkable. Review of bone windows demonstrates thoracolumbar degenerative changes. IMPRESSION: 1. Suspect mild colitis especially the distal colon. 2. Hepatomegaly, unchanged. 3. Few sigmoid diverticula but no evidence of diverticulitis. Signer Name: Jose Alfredo Good MD Signed: 02/25/2021 10:27 AM Workstation Name: [id number] - Medical Decision Making Patient's pain improved. Patient CT shows evidence of colitis. Patient be started on Cipro and Flagyl but she appears to be a good candidate for o utpatient treatment. Critical care attestation.: If time is entered above; I have spent that time in minutes in the direct care of this critically ill patient, excluding procedure time. ED Disposition Clinical Impression: Acute colitis, Lower GI bleed Disposition: DC-01 TO HOME OR SELFCARE Is pt being admited?: No Does the pt Need Aspirin: No Condition: Stable Instructions: Colitis Referrals: [facility] [Provider Group] - 3-5 Days Time of Disposition: 11:04
[2021-02-25 11:34] VITALS: BP 102/57
== END 2021-02-25 11:34 | disposition home or self-care (01) ==
LOC: ED 04:06
DX: K52.9 Noninfective gastroenteritis and colitis, unspecified (principal); I10 Essential (primary) hypertension; G43.909 Migraine, unspecified, not intractable, without status migrainosus; J44.9 Chronic obstructive pulmonary disease, unspecified; F17.200 Nicotine dependence, unspecified, uncomplicated; F12.10 Cannabis abuse, uncomplicated; Z90.710 Acquired absence of both cervix and uterus; Z98.890 Other specified postprocedural states; Z79.899 Other long term (current) drug therapy
CPT/HCPCS: 36415; 74177; 80048; 85025; 96361; 96372; 96374; 99284; J0500; J1885; J7030; Q9967